=== PATIENT | male | born 1965 | race Hispanic/Latino ===

== ENCOUNTER 2022-03-04 13:24 | Emergency (ER) | payer OTHER ==
--- OUTSIDE RECORDS SUMMARY | 2022-03-04 13:28 | XMS REPORT | Continuity of Care Document ---
:1965 Author Organization [facility] t Address [address] [place] [address] Care Team Providers Name Role Phone Jess Horowitz Primary Care Physician [phone] Nurse, Nilesh Urgent Attending Clinician Unavailable Lab, Adc Fam Pob I Attending Clinician Unavailable Stephy Fletcher Attending Clinician Payers Payer Name Policy Type Policy Number Effective Date Expiration Date S ource Problems This patient has no known problems. Allergies, Adverse Reactions, Alerts Allergy Allergy Status Severity Reaction(s) Onset Inactive Treating Comm ents Source Name Type Date Date Clinician NO KNOWN Drug Active [facility] Social History Social Habit Start Date Stop Date Quantity Comments Source Sex Assigned At Uni versity [facility] Smoking Status Start Date Stop Date Source [facility] Medications Ordered Filled Start Stop Current Ordering Indication Dosage Frequency Signature Comments Components Source Medication Medication Date Date Medication? Clinician (SIG) Name Name &lt 0 No 100 7- 00:00: 00 &lt 2021-0 No 7- 00:00: 00 &lt 2021-0 No 7- 00:00: 00 &lt 2021-0 No 100 7- 00:00: 00 &lt 2021-0 No 7- 00:00: 00 &lt 2-0 No 7-13 00:00: 00 amlodipine 2-0 No 1mg 5 mg tablet 4-29 00:00: 00 losartan 2-0 No 1mg 100 mg 4-29 tablet 00:00: 00 ketoconazol 1-0 No 1% e 2 % 9-22 topical 00:00: cream 00 ketoconazol 1-0 No 1% e 2 % 9-22 shampoo 00:00: 00 amlodipine 1-0 No 1mg 5 mg tablet 9- 00:00: 00 losartan 1-0 No 1mg 100 mg 9-22 tablet 00:00: 00 celecoxib 1-0 No 1mg 200 mg 9-22 capsule 00:00: 00 losartan 1-0 No 1mg 100 mg 9-13 tablet 00:00: 00 amlodipine 1-0 No 1mg 5 mg tablet 9- 00:00: 00 losartan 1-0 No 1mg 100 mg 8-17 tablet 00:00: 00 amlodipine 1-0 No 1mg 5 mg tablet 8-17 00:00: 00 ketoconazol 2020-0 No 1% e 2 % 1-22 topical 00:00: cream 00 losartan 1-0 No 1mg 100 mg 1-22 tablet 00:00: 00 amlodipine 1-0 No 1mg 5 mg tablet 1- 00:00: 00 atorvastati 1-0 No 1mg n 20 mg 1-22 tablet 00:00: 00 celecoxib 1-0 No 1mg 200 mg 1-22 capsule 00:00: 00 omeprazole 2020-0 No 1mg 40 mg 1-22 capsule,del 00:00: ayed 00 release losartan 2019-1 No 1mg 100 mg 2-28 tablet 00:00: 00 amlodipine 2019-1 No 1mg 5 mg tablet 2-28 00:00: 00 atorvastati 2020-1 No 1mg n 20 mg 2-28 tablet 00:00: 00 omeprazole 2020-1 No 1mg 40 mg 2-28 capsule,del 00:00: ayed 00 release amlodipine 2019-1 No 1mg 5 mg tablet 1-25 00:00: 00 losartan 2020-0 No 1mg 100 mg 9-03 tablet 00:00: 00 omeprazole 2020-0 No 1mg 40 mg 9- capsule,del 00:00: ayed 00 release diclofenac 2020-0 No 1% 3 % topical 7-02 gel 00:00: 00 ketoconazol 2020-0 No 1% e 2 % 7-02 topical 00:00: cream 00 diclofenac 2020-0 No 1mg sodium 50 7-02 mg 00:00: tablet,jigna 00 yed release mupirocin 2 2020-0 No 1% % topical 3-19 ointment 00:00: 00 cephalexin 2020-0 No 1mg 500 mg 3-19 capsule 00:00: 00 atorvastati 2020-0 No 1mg n 20 mg 2-14 tablet 00:00: 00 diclofenac 2020-0 No % 1 % topical 2-12 gel 00:00: 00 losartan 2020-0 No 1mg 100 mg 2-12 tablet 00:00: 00 amlodipine 2020-0 No 1mg 5 mg tablet 2-12 00:00: 00 omeprazole 2020-0 No 1mg 40 mg 2-12 capsule,del 00:00: ayed 00 release Macrobid 2020-0 No 1mg 100 mg 2-12 capsule 00:00: 00 clotrimazol 2019-0 No 1% e 1 % 7- topical 00:00: cream 00 losartan 2019-0 No 1mg 100 mg 7-29 tablet 00:00: 00 amlodipine 2019-0 No 1mg 5 mg tablet 7-29 00:00: 00 amlodipine 2019-0 No 1mg 5 mg tablet 7-19 00:00: 00 amlodipine 2019-0 No 1mg 5 mg tablet 4-17 00:00: 00 amlodipine 2018-1 No 1mg 5 mg tablet 0-25 00:00: 00 clotrimazol 2018-0 No 1% e 1 % 9-19 topical 00:00: cream 00 Tessalon 2018-0 No 1mg Perles 100 9-19 mg capsule 00:00: 00 amlodipine 2018-0 No 1mg 5 mg tablet 8 00:00: 00 Cialis 10 2018-0 No 1mg mg tablet 8 00:00: 00 naproxen 2018-0 No 1mg 500 mg 8- tablet 00:00: 00 cyclobenzap 2018-0 No 1mg rine 5 mg 8- tablet 00:00: 00 clotrimazol 2018-0 No 1% e 1 % 8- topical 00:00: cream 00 amlodipine 2017-0 No 1mg 5 mg tablet 12-03 00:00: 00 allopurinol 2018-0 No 1mg 100 mg 4-12 tablet 00:00: 00 allopurinol 2018-0 No 1mg 100 mg 3-01 tablet 00:00: 00 propranolol 2018-0 No 5mg 40 mg 2-26 tablet 00:00: 00 atenolol 2018-0 No 5mg 100 mg 2-26 tablet 00:00: 00 lisinopril 2018-0 No 1mg 20 mg 2-26 tablet 00:00: 00 Immunizations Ordered Immunization Filled Immunization Date Status Commen ts Source Name Name Jeyson COVID-19 2020-12-26 Completed Vaccine 00:00:00 Moderna COVID-19 2020-11-27 Completed Vaccine 00:00:00 Tdap 2020-08-21 Completed 00:00:00 zoster 2020-08-21 Completed 00:00:00 Tdap 2018-04-15 Completed 00:00:00 Vital Signs Vital Name Observation Time Observation Value Comments Source BP Systolic 2022-02-06 17:43:00 150 mm[Hg] BP Diastolic 2022-02-06 17:43:00 84 mm[Hg] Weight Measured 2022-02-06 17:43:00 246.00 pounds Height Measured 2022-02-06 17:43:00 67.00 inches Body Temperature 2022-02-06 17:43:00 98.10 degrees Heart Rate 2022-02-06 17:43:00 58.00 /min Respiratory Rate 2022-02-06 17:43:00 BP Systolic 2021-09-18 13:39:00 BP Diastolic 2021-09-18 13:39:00 Weight Measured 2021-09-18 13:39:00 245.00 pounds Height Measured 2021-09-18 13:39:00 67.00 inches Body Temperature 2021-09-18 13:39:00 Heart Rate 2021-09-18 13:39:00 Respiratory Rate 2021-09-18 13:39:00 BP Systolic 2021-09-13 08:00:00 BP Diastolic 2021-09-13 08:00:00 Weight Measured 2021-09-13 08:00:00 245.00 pounds Height Measured 2021-09-13 08:00:00 67.00 inches Body Temperature 2021-09-13 08:00:00 Heart Rate 2021-09-13 08:00:00 Respiratory Rate 2021-09-13 08:00:00 BP Systolic 2021-04-21 11:13:00 151 mm[Hg] BP Diastolic 2021-04-21 11:13:00 80 mm[Hg] Weight Measured 2021-04-21 11:13:00 245.60 pounds Height Measured 2021-04-21 11:13:00 67.20 inches Body Temperature 2021-04-21 11:13:00 99.00 degrees Heart Rate 2021-04-21 11:13:00 53.00 /min Respiratory Rate 2021-04-21 11:13:00 17.00 /min BP Systolic 2021-04-18 08:25:00 141 mm[Hg] BP Diastolic 2021-04-18 08:25:00 83 mm[Hg] Weight Measured 2021-04-18 08:25:00 254.00 pounds Height Measured 2021-04-18 08:25:00 67.20 inches Body Temperature 2021-04-18 08:25:00 97.80 degrees Heart Rate 2021-04-18 08:25:00 62.00 /min Respiratory Rate 2021-04-18 08:25:00 BP Systolic 2020-08-18 14:25:00 117 mm[Hg] BP Diastolic 2020-08-18 14:25:00 71 mm[Hg] Weight Measured 2020-08-18 14:25:00 243.20 pounds Height Measured 2020-08-18 14:25:00 67.20 inches Body Temperature 2020-08-18 14:25:00 97.80 degrees Heart Rate 2020-08-18 14:25:00 64.00 /min Respiratory Rate 2020-08-18 14:25:00 18.00 /min BP Systolic 2020-01-27 09:53:00 135 mm[Hg] BP Diastolic 2020-01-27 09:53:00 86 mm[Hg] Weight Measured 2020-01-27 09:53:00 241.00 pounds Height Measured 2020-01-27 09:53:00 67.20 inches Body Temperature 2020-01-27 09:53:00 97.70 degrees Heart Rate 2020-01-27 09:53:00 61.00 /min Respiratory Rate 2020-01-27 09:53:00 16.00 /min BP Systolic 2019-10-14 10:33:00 141 mm[Hg] BP Diastolic 2019-10-14 10:33:00 81 mm[Hg] Weight Measured 2019-10-14 10:33:00 237.40 pounds Height Measured 2019-10-14 10:33:00 67.20 inches Body Temperature 2019-10-14 10:33:00 98.20 degrees Heart Rate 2019-10-14 10:33:00 51.00 /min Respiratory Rate 2019-10-14 10:33:00 18.00 /min BP Systolic 2019-09-08 13:27:00 134 mm[Hg] BP Diastolic 2019-09-08 13:27:00 75 mm[Hg] Weight Measured 2019-09-08 13:27:00 234.60 pounds Height Measured 2019-09-08 13:27:00 67.20 inches Body Temperature 2019-09-08 13:27:00 98.60 degrees Heart Rate 2019-09-08 13:27:00 76.00 /min Respiratory Rate 2019-09-08 13:27:00 BP Systolic 2019-05-07 14:08:00 136 mm[Hg] BP Diastolic 2019-05-07 14:08:00 85 mm[Hg] Weight Measured 2019-05-07 14:08:00 235.80 pounds Height Measured 2019-05-07 14:08:00 67.20 inches Body Temperature 2019-05-07 14:08:00 98.00 degrees Heart Rate 2019-05-07 14:08:00 67.00 /min Respiratory Rate 2019-05-07 14:08:00 18.00 /min Procedures Procedure Date / Time Performed Performing Clinician Sourc e Ekg 2018-11-11 00:00:00 Plan of Care Planned Activity Planned Date Details Comments Source Goal Plan of Care Note [code = 85000-0] Goal Plan of Care Note [code = 14950-7] Goal Plan of Care Note [code = 74815-9] Goal Plan of Care Note [code = 43655-8] Goal Plan of Care Note [code = 38315-4] Goal Plan of Care Note [code = 67804-0] Goal Plan of Care Note [code = 09210-3] Goal Plan of Care Note [code = 82822-2] Goal Plan of Care Note [code = 93624-5] Goal Plan of Care Note [code = 01309-1] Goal Plan of Care Note [code = 42648-8] Goal Plan of Care Note [code = 62206-4] Goal Plan of Care Note [code = 26895-7] Goal Plan of Care Note [code = 94252-2] Goal Plan of Care Note [code = 61455-7] Goal Plan of Care Note [code = 12501-0] Goal Plan of Care Note [code = 90907-8] Goal Plan of Care Note [code = 83837-3] Goal Plan of Care Note [code = 19087-9] Goal Plan of Care Note [code = 92766-8] Goal Plan of Care Note [code = 93866-7] Goal Plan of Care Note [code = 90947-5] Goal Plan of Care Note [code = 06097-4] Goal Plan of Care Note [code = 47199-5] Goal Plan of Care Note [code = 80176-7] Goal Plan of Care Note [code = 28914-4] Goal Plan of Care Note [code = 09468-3] Goal Plan of Care Note [code = 13069-3] Encounters Start End Encounter Admission Attending Care Care Encounter Source Date/Time Date/Time Type Type Clinicians Facility Department ID 2022-02-06 2022-02-06 Outpatient [id number] 00:00:00 00:00:00 Visit [id number] 2020-03-04 2020-03-04 Telephone Nurse, Nilesh [facility] [id number] Univers 00:00:00 00:00:00 Urgent [facility] [id number] [facility] [place] [id number] [facility] [id number] [facility] 2020-03-03 2020-03-03 Laboratory Lab, Adc Fam Pob I [facility] 1.2. [id number] Univers 08:52:31 09:12:31 Only Stephy Pitt [employer] [id number] ity [facility] [id number] Nilesh as Char [id number] Mi dical [facility] [address] 2020-03-03 2020-03-03 Outpatient R [facility] [id number] Univers 09:00:00 09:00:00 ity [facility] Results Test Description Test Time Test Comments Results Result Comments Source SARS-CoV-2 (COVID-19), RT-PCR/TMA 2021-09-19 07:45:58 Test Item Value Reference Range Interpretation Comme nts SARS-CoV-2 INTERPRETATION NEGATIVE SEE NOTE S ARS-CoV-2 RNA NOT (test code = 18692) DETECTED Negative results do not preclude SARS-C oV-2 infection and should notb e used as the sole basis for patient management deci sions. Negativeresults must be combined with clinical o bservations, patient history ,and epidemiological information. Optimum specime n types and timingfor peak viral levels during infectio ns caused by SARS-CoV-2 have notbeen determined. Col lection of multiple specim ens or types ofspecimens may be necessary to detect virus. I mproper specimencollect ion and handling, sequence variab ility under primers/probes, or organism present below t he limit of detection may l ead to falsenegative r esults. Positive and negative pr edictive values oftesting are h ighly dependent on prevalence. False negative testresults are more likely when prevalence is h igh. SOURCE (test code = 08000) NOT SPECIFIED Note: Methodology is Isabela Frank Real-Time RT-PCR. The expected result or reference range is NEGATI VE (Not Detected). For more information regarding COVID -19 testing to include clinica linformation, methodology det ail, intended use, FDA author ization andrecommended fact sheets for patients or a [facility] providers, see NewTest Announcement: S ARS-CoV-2 (COVID-19) by N AAT at URL below (note,fact shee ts are provided by method given in report:https:// www.[employer]c linicians/stuart t-communications/ Alternatively, see downloadable PDF fact sheet at:[email or web address]. [email or web address] -19-RT-PCR UNLE SS OTHERWISE INDICATED, ALL TESTING PERFORMED [facility], [facility]. [address] [place] [address] 4 X RAY CONSULTANT: CLINTON CARTAGENA M.D. ANGEL Farfan [id number] CAP ACCREDITATION N O. [id number] SARS-CoV-2 (COVID-19) by RT-PCR (HIGH RISK)2021-09-19 00:00:00 Test Item Value Reference Range Interpretation Comments SARS-CoV-2 INTERPRETATION (test NEGATIVE code = 90935) SOURCE (test code = 72226) NOT SPECIFIED COMPREHENSIVE METABOLIC [id number] 00:00:00 Test Item Value Reference Range Interpretation Comments GLUCOSE (test code = 2217) 114 MG/DL BUN (test code = 2208) 19 MG/DL CREATININE (test code = 2214) 0.99 MG/DL eGFR AMER. (test code 100 ML/MIN/1.73 = 96656) eGFR NON- AMER. (test 86 ML/MIN/1.73 code = 31341) CALC BUN/CREAT (test code = 19 RATIO 2235) SODIUM (test code = 2231) 141 MEQ/L POTASSIUM (test code = 2228) 4.4 MEQ/L CHLORIDE (test code = 2215) 105 MEQ/L CARBON DIOXIDE (test code = 24 MEQ/L 2206) CALCIUM (test code = 2209) 9.3 MG/DL PROTEIN, TOTAL (test code = 7.1 G/DL 2229) ALBUMIN (test code = 2201) 4.3 G/DL CALC GLOBULIN (test code = 2.8 G/DL 2240) CALC A/G RATIO (test code = 1.5 RATIO 2234) BILIRUBIN, TOTAL (test code = 0.3 MG/DL 220) ALKALINE PHOSPHATASE (test 40 U/L code = 2204) AST (test code = 2218) 27 U/L ALT (test code = 2219) 31 U/L [id number] 00:00:00 Test Item Value Reference Range Interpretation Comments TSH, THIRD GENERATION (test code 2.040 UIU/ML = 2821) [id number] 00:00:00 Test Item Value Reference Range Interpretation Comments TSH, THIRD GENERATION (test code 2.040 UIU/ML = 2821) URIC [id number] 00:00:00 Test Item Value Reference Range Interpretation Comments URIC ACID (test code = 2233) 3.4 MG/DL HEMOGLOBIN [id number] 00:00:00 Test Item Value Reference Range Interpretation Comments HEMOGLOBIN A1c (test code = 81600) 6.1 % HEMOGLOBIN [id number] 00:00:00 Test Item Value Reference Range Interpretation Comments HEMOGLOBIN A1c (test code = 23974) 6.1 % LIPID [id number] 00:00:00 Test Item Value Reference Range Interpretation Comments CHOLESTEROL (test code = 2210) 233 MG/DL TRIGLYCERIDES (test code = 2232) 144 MG/DL HDL CHOLESTEROL (test code = 2220) 50 MG/DL CALC LDL CHOL (test code = 2237) 156 MG/DL RISK RATIO LDL/HDL (test code = 3.12 RATIO 2238) OCCULT BLD,FECAL,IMMUNOASSAY [id number] 00:00:00 Test Item Value Reference Range Interpretation Comments OCCULT BLD, FECAL (test code = NEGATIVE 90951) OCCULT BLD,FECAL,IMMUNOASSAY [id number] 00:00:00 Test Item Value Reference Range Interpretation Comments OCCULT BLD, FECAL (test code = NEGATIVE 78965) NOTE: [ADDED]2020-08-25 00:00:00 Test Item Value Reference Range Interpretation Comments NOTE: (test code = 998) (NOTE) HEMOGLOBIN A1c [ADDED]2020-08-24 00:00:00 Test Item Value Reference Range Interpretation Comments HEMOGLOBIN A1c (test code = 95997) 5.7 % HEMOGLOBIN A1c [ADDED]2020-08-24 00:00:00 Test Item Value Reference Range Interpretation Comments HEMOGLOBIN A1c (test code = 93980) 5.7 % COMPREHENSIVE METABOLIC [id number] 00:00:00 Test Item Value Reference Range Interpretation Comments GLUCOSE (test code = 2217) 116 MG/DL BUN (test code = 2208) 17 MG/DL CREATININE (test code = 2214) 0.78 MG/DL eGFR AMER. (test code 119 ML/MIN/1.73 = 03814) eGFR NON- AMER. (test 103 ML/MIN/1.73 code = 96748) CALC BUN/CREAT (test code = 22 RATIO 2235) SODIUM (test code = 2231) 142 MEQ/L POTASSIUM (test code = 2228) 4.6 MEQ/L CHLORIDE (test code = 2215) 108 MEQ/L CARBON DIOXIDE (test code = 25 MEQ/L 2205) CALCIUM (test code = 2209) 9.3 MG/DL PROTEIN, TOTAL (test code = 7.2 G/DL 2228) ALBUMIN (test code = 2201) 4.3 G/DL CALC GLOBULIN (test code = 2.9 G/DL 2239) CALC A/G RATIO (test code = 1.5 RATIO 2233) BILIRUBIN, TOTAL (test code = 0.3 MG/DL 2206) ALKALINE PHOSPHATASE (test 43 U/L code = 220) AST (test code = 2218) 22 U/L ALT (test code = 2219) 30 U/L [id number] 00:00:00 Test Item Value Reference Range Interpretation Comments TSH, THIRD GENERATION (test code 0.712 UIU/ML = 2821) [id number] 00:00:00 Test Item Value Reference Range Interpretation Comments TSH, THIRD GENERATION (test code 0.712 UIU/ML = 2821) PSA, [id number] 00:00:00 Test Item Value Reference Range Interpretation Comments PSA, TOTAL (test code = 2606) 2.93 NG/ML PSA, [id number] 00:00:00 Test Item Value Reference Range Interpretation Comments PSA, TOTAL (test code = 2606) 2.93 NG/ML CBC W/AUTO [id number] 00:00:00 Test Item Value Reference Range Interpretation Comments WBC (test code = 1001) 5.9 K/UL RBC (test code = 1002) 5.05 M/UL HEMOGLOBIN (test code = 1003) 14.3 G/DL HEMATOCRIT (test code = 1004) 43.1 % MCV (test code = 1005) 85.3 fL MCH (test code = 1006) 28.3 PG MCHC (test code = 1007) 33.2 G/DL RDW (test code = 1038) 14.2 % NEUTROPHILS (test code = 1008) 55.2 % LYMPHOCYTES (test code = 1010) 32.5 % MONOCYTES (test code = 1011) 7.0 % EOSINOPHILS (test code = 1012) 4.4 % BASOPHILS (test code = 1013) 0.9 % PLATELET COUNT (test code = 1015) 294 K/UL CBC W/AUTO [id number] 00:00:00 Test Item Value Reference Range Interpretation Comments WBC (test code = 1001) 5.9 K/UL RBC (test code = 1002) 5.05 M/UL HEMOGLOBIN (test code = 1003) 14.3 G/DL HEMATOCRIT (test code = 1004) 43.1 % MCV (test code = 1005) 85.3 fL MCH (test code = 1006) 28.3 PG MCHC (test code = 1007) 33.2 G/DL RDW (test code = 1038) 14.2 % NEUTROPHILS (test code = 1008) 55.2 % LYMPHOCYTES (test code = 1010) 32.5 % MONOCYTES (test code = 1011) 7.0 % EOSINOPHILS (test code = 1012) 4.4 % BASOPHILS (test code = 1013) 0.9 % PLATELET COUNT (test code = 1015) 294 K/UL LIPID [id number] 00:00:00 Test Item Value Reference Range Interpretation Comments CHOLESTEROL (test code = 2210) 208 MG/DL TRIGLYCERIDES (test code = 2232) 359 MG/DL HDL CHOLESTEROL (test code = 2220) 48 MG/DL CALC LDL CHOL (test code = 2237) 109 MG/DL RISK RATIO LDL/HDL (test code = 2.27 RATIO 2238) URIC [id number] 00:00:00 Test Item Value Reference Range Interpretation Comments URIC ACID (test code = 2233) 4.8 MG/DL CULTURE, [id number] 00:00:00 Test Item Value Reference Range Interpretation Comments CULTURE, URINE (test SPECIMEN NUMBER: code = 27856) [id number] COMPREHENSIVE METABOLIC [id number] 00:00:00 Test Item Value Reference Range Interpretation Comments GLUCOSE (test code = 2217) 132 MG/DL BUN (test code = 2208) 13 MG/DL CREATININE (test code = 2214) 0.91 MG/DL eGFR AMER. (test code 112 ML/MIN/1.73 = 35607) eGFR NON- AMER. (test 97 ML/MIN/1.73 code = 01875) CALC BUN/CREAT (test code = 14 RATIO 2235) SODIUM (test code = 2231) 141 MEQ/L POTASSIUM (test code = 2228) 4.4 MEQ/L CHLORIDE (test code = 2215) 104 MEQ/L CARBON DIOXIDE (test code = 23 MEQ/L 2205) CALCIUM (test code = 2209) 9.8 MG/DL PROTEIN, TOTAL (test code = 7.0 G/DL 2228) ALBUMIN (test code = 2201) 4.4 G/DL CALC GLOBULIN (test code = 2.6 G/DL 2239) CALC A/G RATIO (test code = 1.7 RATIO 2233) BILIRUBIN, TOTAL (test code = 0.5 MG/DL 2206) ALKALINE PHOSPHATASE (test 52 U/L code = 2204) AST (test code = 2218) 22 U/L ALT (test code = 2219) 25 U/L CBC W/AUTO [id number] 00:00:00 Test Item Value Reference Range Interpretation Comments WBC (test code = 1001) 5.6 K/UL RBC (test code = 1002) 5.14 M/UL HEMOGLOBIN (test code = 1003) 14.8 G/DL HEMATOCRIT (test code = 1004) 43.1 % MCV (test code = 1005) 83.9 fL MCH (test code = 1006) 28.8 PG MCHC (test code = 1007) 34.3 G/DL RDW (test code = 1038) 13.0 % NEUTROPHILS (test code = 1008) 62.2 % LYMPHOCYTES (test code = 1010) 27.7 % MONOCYTES (test code = 1011) 5.7 % EOSINOPHILS (test code = 1012) 3.7 % BASOPHILS (test code = 1013) 0.7 % PLATELET COUNT (test code = 1015) 292 K/UL CBC W/AUTO [id number] 00:00:00 Test Item Value Reference Range Interpretation Comments WBC (test code = 1001) 5.6 K/UL RBC (test code = 1002) 5.14 M/UL HEMOGLOBIN (test code = 1003) 14.8 G/DL HEMATOCRIT (test code = 1004) 43.1 % MCV (test code = 1005) 83.9 fL MCH (test code = 1006) 28.8 PG MCHC (test code = 1007) 34.3 G/DL RDW (test code = 1038) 13.0 % NEUTROPHILS (test code = 1008) 62.2 % LYMPHOCYTES (test code = 1010) 27.7 % MONOCYTES (test code = 1011) 5.7 % EOSINOPHILS (test code = 1012) 3.7 % BASOPHILS (test code = 1013) 0.7 % PLATELET COUNT (test code = 1015) 292 K/UL LIPID [id number] 00:00:00 Test Item Value Reference Range Interpretation Comments CHOLESTEROL (test code = 2210) 228 MG/DL TRIGLYCERIDES (test code = 2232) 240 MG/DL HDL CHOLESTEROL (test code = 2220) 67 MG/DL CALC LDL CHOL (test code = 2237) 113 MG/DL RISK RATIO LDL/HDL (test code = 1.69 RATIO 2238) URIC [id number] 00:00:00 Test Item Value Reference Range Interpretation Comments URIC ACID (test code = 2233) 6.9 MG/DL PSA, [id number] 00:00:00 Test Item Value Reference Range Interpretation Comments PSA, TOTAL (test code = 2606) 3.42 NG/ML PSA, [id number] 00:00:00 Test Item Value Reference Range Interpretation Comments PSA, TOTAL (test code = 2606) 3.42 NG/ML LIPID [id number] 00:00:00 Test Item Value Reference Range Interpretation Comments CHOLESTEROL (test code = 2210) 222 MG/DL TRIGLYCERIDES (test code = 2232) 175 MG/DL HDL CHOLESTEROL (test code = 2220) 52 MG/DL CALC LDL CHOL (test code = 2237) 135 MG/DL RISK RATIO LDL/HDL (test code = 2.60 RATIO 2238) COMPREHENSIVE METABOLIC [id number] 00:00:00 Test Item Value Reference Range Interpretation Comments GLUCOSE (test code = 2217) 98 MG/DL BUN (test code = 2208) 13 MG/DL CREATININE (test code = 2214) 0.86 MG/DL eGFR AMER. (test code 116 ML/MIN/1.73 = 40322) eGFR NON- AMER. (test 100 ML/MIN/1.73 code = 09604) CALC BUN/CREAT (test code = 15 RATIO 2235) SODIUM (test code = 2231) 143 MEQ/L POTASSIUM (test code = 2228) 4.9 MEQ/L CHLORIDE (test code = 2215) 105 MEQ/L CARBON DIOXIDE (test code = 28 MEQ/L 2205) CALCIUM (test code = 2209) 9.4 MG/DL PROTEIN, TOTAL (test code = 7.0 G/DL 2228) ALBUMIN (test code = 2201) 4.4 G/DL CALC GLOBULIN (test code = 2.6 G/DL 2239) CALC A/G RATIO (test code = 1.7 RATIO 2233) BILIRUBIN, TOTAL (test code = 0.5 MG/DL 2206) ALKALINE PHOSPHATASE (test 35 U/L code = 2204) AST (test code = 2218) 29 U/L ALT (test code = 2219) 32 U/L BASIC METABOLIC [id number] 00:00:00 Test Item Value Reference Range Interpretation Comments GLUCOSE (test code = 2217) 99 MG/DL BUN (test code = 2208) 22 MG/DL CREATININE (test code = 2214) 1.27 MG/DL eGFR AMER. (test code 75 ML/MIN/1.73 = 47342) eGFR NON- AMER. (test 65 ML/MIN/1.73 code = 65402) SODIUM (test code = 2231) 141 MEQ/L POTASSIUM (test code = 2228) 4.6 MEQ/L CHLORIDE (test code = 2215) 101 MEQ/L CARBON DIOXIDE (test code = 26 MEQ/L 2205) CALCIUM (test code = 2209) 10.2 MG/DL URIC [id number] 00:00:00 Test Item Value Reference Range Interpretation Comments URIC ACID (test code = 2233) 7.1 MG/DL COMPREHENSIVE METABOLIC [id number] 00:00:00 Test Item Value Reference Range Interpretation Comments GLUCOSE (test code = 2217) 124 MG/DL BUN (test code = 2208) 26 MG/DL CREATININE (test code = 2214) 1.42 MG/DL eGFR AMER. (test code 66 ML/MIN/1.73 = 36090) eGFR NON- AMER. (test 57 ML/MIN/1.73 code = 79059) CALC BUN/CREAT (test code = 18 RATIO 2235) SODIUM (test code = 2231) 142 MEQ/L POTASSIUM (test code = 2228) 5.0 MEQ/L CHLORIDE (test code = 2215) 102 MEQ/L CARBON DIOXIDE (test code = 28 MEQ/L 2205) CALCIUM (test code = 2209) 9.4 MG/DL PROTEIN, TOTAL (test code = 6.4 G/DL 2228) ALBUMIN (test code = 2201) 4.0 G/DL CALC GLOBULIN (test code = 2.4 G/DL 2240) CALC A/G RATIO (test code = 1.7 RATIO 2234) BILIRUBIN, TOTAL (test code = 0.4 MG/DL 2206) ALKALINE PHOSPHATASE (test 33 U/L code = 2204) AST (test code = 2218) 21 U/L ALT (test code = 2219) 28 U/L LIPID [id number] 00:00:00 Test Item Value Reference Range Interpretation Comments CHOLESTEROL (test code = 2210) 140 MG/DL TRIGLYCERIDES (test code = 2232) 231 MG/DL HDL CHOLESTEROL (test code = 2220) 40 MG/DL CALC LDL CHOL (test code = 2237) 54 MG/DL RISK RATIO LDL/HDL (test code = 1.35 RATIO 2238) H. PYLORI (BREATH)[id number] 00:00:00 Test Item Value Reference Range Interpretation Comments H. PYLORI (BREATH) (test code = NEGATIVE 53355) URIC [id number] 00:00:00 Test Item Value Reference Range Interpretation Comments URIC ACID (test code = 2233) 6.0 MG/DL LIPID [id number] 00:00:00 Test Item Value Reference Range Interpretation Comments CHOLESTEROL (test code = 2210) 263 MG/DL TRIGLYCERIDES (test code = 2232) 185 MG/DL HDL CHOLESTEROL (test code = 2220) 57 MG/DL CALC LDL CHOL (test code = 2237) 169 MG/DL RISK RATIO LDL/HDL (test code = 2.96 RATIO 2238) URIC [id number] 00:00:00 Test Item Value Reference Range Interpretation Comments URIC ACID (test code = 2233) 8.8 MG/DL COMPREHENSIVE METABOLIC [id number] 00:00:00 Test Item Value Reference Range Interpretation Comments GLUCOSE (test code = 2217) 109 MG/DL BUN (test code = 2208) 25 MG/DL CREATININE (test code = 2214) 1.11 MG/DL eGFR AMER. (test code 89 ML/MIN/1.73 = 15619) eGFR NON- AMER. (test 77 ML/MIN/1.73 code = 19436) CALC BUN/CREAT (test code = 23 RATIO 2235) SODIUM (test code = 2231) 144 MEQ/L POTASSIUM (test code = 2228) 4.7 MEQ/L CHLORIDE (test code = 2215) 101 MEQ/L CARBON DIOXIDE (test code = 32 MEQ/L 2205) CALCIUM (test code = 2209) 10.0 MG/DL PROTEIN, TOTAL (test code = 7.6 G/DL 2228) ALBUMIN (test code = 220) 4.6 G/DL CALC GLOBULIN (test code = 3.0 G/DL 2239) CALC A/G RATIO (test code = 1.5 RATIO 2233) BILIRUBIN, TOTAL (test code = 0.5 MG/DL 2206) ALKALINE PHOSPHATASE (test 33 U/L code = 2204) AST (test code = 2218) 24 U/L ALT (test code = 2219) 46 U/L LIPID [id number] 00:00:00 Test Item Value Reference Range Interpretation Comments CHOLESTEROL (test code = 2210) 232 MG/DL TRIGLYCERIDES (test code = 2232) 175 MG/DL HDL CHOLESTEROL (test code = 2220) 52 MG/DL CALC LDL CHOL (test code = 2237) 145 MG/DL RISK RATIO LDL/HDL (test code = 2.79 RATIO 2238)
[2022-03-04] MEDS ORDERED: HYDROMORPHONE HCL 1 MG/ML INJ ONE ×2 (13:56→16:06)
[2022-03-04] MEDS ORDERED: TETANUS & DIPHTHERIA TOX,ADULT 0.5 ML VIAL ONE (13:57)
[2022-03-04] MEDS ORDERED: LIDOCAINE 1% W/EPI 1:100,000 MDV 50 ML VIAL ONE (13:57)
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
[2022-03-04 14:33] LABS: Hematocrit 39.1 % (39.6-49.0); Lymphocytes % 16.7 % (15.3-44.8); MCV 83.7 fL (80-100); MPV 8.2 fL (7.6-11.3); RBC Red Blood Cell Count 4.67 M/uL (4.33-5.43)
[2022-03-04 15:00] LABS: CKMB Creatine Kinase MB 2.7 ng/mL (1.0-3.6); Potassium 3.6 mmol/L (3.5-5.1); Troponin High Sensitivity 31.1 pg/mL (<58.9)
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
[2022-03-04 16:58] VITALS: TEMP 98.1
[2022-03-04 17:06] VITALS: BP 135/75; O2SAT 97
== END 2022-03-04 16:30 | disposition home or self-care (01) ==
LOC: ER 13:24
PROC: 0JQH0ZZ Repair Left Lower Arm Subcutaneous Tissue and Fascia, Open Approach (ICD-10-PCS; principal; 2022-03-04)
DX: S51.812A Laceration without foreign body of left forearm, initial encounter (principal); S50.02XA Contusion of left elbow, initial encounter; S20.20XA Contusion of thorax, unspecified, initial encounter; V59.49XA Driver of pick-up truck or van injured in collision with other motor vehicles in traffic accident, initial encounter; Z23 Encounter for immunization; I10 Essential (primary) hypertension
CPT/HCPCS: 85025; 80048; 36415; 86900; 86850; 82550; 86901; 84484; 82553; 70450; 72125; 71260; 74177; 73080; 90714; 12002; Q9967; J1170 ×2; 90471; 96374; 99284